=== PATIENT | male | born 1995 | race Two or more races ===

== ENCOUNTER 2020-04-01 10:04 | Emergency (ER) | payer OTHER, MEDICAID ==
[~2020-04-01] VITALS: Ht 177.8 cm; Wt 140.6 kg
[2020-04-01 10:10] VITALS: BP 139/85
[2020-04-01] MEDS ORDERED: IBUPROFEN 800 MG TAB PO ONE (11:15)
== END 2020-04-01 11:34 | disposition home or self-care (01) ==
LOC: ER 10:04
DX: S39.012A Strain of muscle, fascia and tendon of lower back, initial encounter (principal); S00.83XA Contusion of other part of head, initial encounter; Z88.6 Allergy status to analgesic agent; V43.52XA Car driver injured in collision with other type car in traffic accident, initial encounter; Y93.89 Activity, other specified; Y92.488 Other paved roadways as the place of occurrence of the external cause; Y99.8 Other external cause status
CPT/HCPCS: 72100